=== PATIENT | male | born 1955 | race African-American/Black ===

== ENCOUNTER 2023-02-17 15:22 | Inpatient (IN) | payer OTHER ==
[2023-02-17] VITALS (11 sets, daily range): BP systolic 97–115; BP diastolic 65–85
[~2023-02-17] VITALS: Ht 185.4 cm; Wt 132.1 kg
[2023-02-17] MEDS ORDERED: LORAZEPAM 2MG/ML CPJ IV ONE (15:45)
[2023-02-17] MEDS ORDERED: LEVETIRACETAM 1000MG PREMIX 100 ML IV ONE (16:00)
[2023-02-17 16:27] LABS: PROTHROMBIN TIME 10.6 sec (9.6-11.0)
[2023-02-17 16:29] LABS: CHLORIDE 103 mEq/L (98-107)
[2023-02-17] MEDS ORDERED: NICARDIPINE 50 MG in SODIUM CHLORIDE 0.9% 230 ML IV PRN (16:30)
[2023-02-17] MEDS ORDERED: SUCCINYLCHOLINE CHLORIDE 200MG/10ML IV ONE ×2 (16:33→18:00)
[2023-02-17] MEDS ORDERED: ETOMIDATE 2MG/ML 10ML VIAL IV ONE ×2 (16:33→18:00)
[2023-02-17 16:39] LABS: ETHANOL BLOOD < 10 mg/dL
[2023-02-17] MEDS ORDERED: KCL 20MEQ/100ML PREMIX 100 ML IV ONE (16:45)
[2023-02-17 16:58] LABS: HEMATOCRIT. 44.3 % (42.0-52.0); HEMOGLOBIN. 13.9 g/dL (14.0-18.0); MEAN CORPUSCULAR HEMOGLOBIN 28.8 pg (28.0-32.0); MEAN CORPUSCULAR VOLUME 91.4 fL (80.0-94.0); MEAN PLATELET VOLUME 8.7 fl (7.4-10.4); PLATELET 155 x1000/uL (130-400); RED BLOOD CELL COUNT 4.84 mill/uL (4.7-6.1); RED CELL DISTRIBUTION WIDTH 15.1 % (11.6-14.6)
[2023-02-17] MEDS ORDERED: NICARDIPINE 40MG/200ML PREMIX 200 ML IV PRN (17:30)
[2023-02-17] MEDS ORDERED: NICARDIPINE 40MG/200ML PREMIX 200 ML IV ONE (17:30)
[2023-02-17] MEDS ORDERED: MORPHINE SULFATE 2 MG/ML CPJ (NOT FOR IM USE) IV ONE (17:30)
[2023-02-17] MEDS ORDERED: MIDAZOLAM HCL 100 MG in SODIUM CHLORIDE 0.9% 100 ML IV PRN (18:15)
[2023-02-17] MEDS ORDERED: LACTULOSE 20G/30ML UDC NG ONE (18:15)
[2023-02-17] MEDS ORDERED: FENTANYL CITRATE 2,500 MCG in SODIUM CHLORIDE 0.9% 200 ML IV PRN (18:15)
[2023-02-17 20:27] LABS: PLATELET ESTIMATE NORMAL
[2023-02-17 20:51] LABS: CLARITY URINE CLEAR (CLEAR); COLOR URINE YELLOW (YELLOW); KETONES URINE NEGATIVE (NEGATIVE); LEUKOCYTE ESTERASE URINE NEGATIVE (NEGATIVE); NITRITE URINE NEGATIVE (NEGATIVE); OCCULT BLOOD URINE 2+ (NEGATIVE); PROTEIN URINE 3+ (NEGATIVE); SPECIFIC GRAVITY URINE 1.061 (1.005-1.030); UROBILINOGEN URINE 0.2 E.U./dL (0.2-1.0)
[2023-02-17 21:03] LABS: *AMPHETAMINES SCREEN URINE NEGATIVE (NEGATIVE); *BARBITURATES SCREEN URINE NEGATIVE (NEGATIVE); *BENZODIAZEPINES SCREEN URINE PRESUMTIVE POSITIVE (NEGATIVE); *COCAINE SCREEN URINE NEGATIVE (NEGATIVE); CANNABINOID URINE SCREEN NEGATIVE (NEGATIVE); METHADONE URINE SCREEN NEGATIVE (NEGATIVE); OPIATES URINE SCREEN NEGATIVE (NEGATIVE); PHENCYCLIDINE URINE SCREEN NEGATIVE (NEGATIVE)
[2023-02-17] MEDS ORDERED: LACTULOSE 20G/30ML UDC PO NR (22:30)
[2023-02-17] MEDS ORDERED: DEXTROSE 50% WATER 50ML SYRINGE IV PRN (22:30)
[2023-02-17] MEDS: LEVETIRACETAM 500MG PREMIX 100 ML IV SCH (22:41)
[2023-02-17] MEDS: DEXT 5%/LACTATED RINGERS 1,000 ML IV SCH (22:42)
[2023-02-17 22:51] LABS: BG BASE EXCESS -0.7 mmol/L (-2.0-2.0); BG CARBOXYHEMOGLOBIN 0.6 % (0.5-1.5); BG DEOXYHEMOGLOBIN 1.3 % (0.0-5.0); BG FRACTION INSPIRED OXYGEN 100; BG HCO3 ACT 25.3 mmol/L (22.0-26.0); BG METHEMOGLOBIN 0.1 % (0.0-1.5); BG OXYGEN SATURATION 98.7 % (92.0-98.5); BG PCO2 46.6 mmHg (35.0-45.0); BG PEEP (cmH2O) 0 cmH2O; BG PH 7.352 (7.350-7.450); BG PO2 155.2 mmHg (75.0-100.0); BG SAMPLE SITE RIGHT RADIAL; BG TOTAL HEMOGLOBIN 13.8 g/dL (12.0-18.0); BG VENT MODE VENT - AC
[2023-02-17] MEDS ORDERED: IOHEXOL-350 100 ML BOTTLE ONE (22:56)
[2023-02-17] MEDS ORDERED: FENTANYL 2500MCG/250ML PMX 250 ML IV PRN (23:15)
[2023-02-17] MEDS: PROPOFOL 10MG/ML 100ML 100 ML IV PRN (23:26)
[2023-02-17] MEDS: FENTANYL CITRATE 2,500 MCG in SODIUM CHLORIDE 0.9% 200 ML IV PRN (23:36)
[2023-02-18] VITALS (75 sets, daily range): BP systolic 72–153; BP diastolic 22–105
[2023-02-18 05:21] LABS: BASOPHILS % 0.3 % (0.0-2.0); EOSINOPHILS % 0.8 % (0.0-5.0); HEMATOCRIT. 38.4 % (42.0-52.0); HEMOGLOBIN. 12.5 g/dL (14.0-18.0); LYMPHOCYTES % 32.7 % (20.0-50.0); MEAN CORPUSCULAR HEMOGLOBIN 28.7 pg (28.0-32.0); MEAN CORPUSCULAR VOLUME 88.2 fL (80.0-94.0); MEAN PLATELET VOLUME 8.5 fl (7.4-10.4); MONOCYTES % 11.7 % (2.0-8.0); NEUTROPHILS % 54.5 % (40.0-76.0); PLATELET 126 x1000/uL (130-400); RED BLOOD CELL COUNT 4.36 mill/uL (4.7-6.1); RED CELL DISTRIBUTION WIDTH 15.2 % (11.6-14.6)
[2023-02-18 05:32] LABS: CHLORIDE 106 mEq/L (98-107)
[2023-02-18] MEDS: BLOOD SUGAR DIAGNOSTIC STRIP TEST SCH ×4 (05:46→21:44)
[2023-02-18] MEDS: PROPOFOL 10MG/ML 100ML 100 ML IV PRN ×4 (08:15→23:25)
[2023-02-18] MEDS: NICARDIPINE 100 MG in SODIUM CHLORIDE 0.9% 60 ML IV PRN ×2 (08:39→17:34)
[2023-02-18] MEDS ORDERED: LIDOCAINE HCL 1% 30ML VIAL (10MG/ML) ONE (09:29)
[2023-02-18 10:16] LABS: BG CARBOXYHEMOGLOBIN 0.8 % (0.5-1.5); BG DEOXYHEMOGLOBIN 4.8 % (0.0-5.0); BG FRACTION INSPIRED OXYGEN 85; BG HCO3 ACT 27.4 mmol/L (22.0-26.0); BG METHEMOGLOBIN 0.3 % (0.0-1.5); BG OXYGEN SATURATION 95.1 % (92.0-98.5); BG OXYHEMOGLOBIN 94.1 % (94.0-97.0); BG PCO2 51.2 mmHg (35.0-45.0); BG PH 7.347 (7.350-7.450); BG PO2 77.3 mmHg (75.0-100.0); BG SAMPLE SITE RIGHT RADIAL; BG TOTAL HEMOGLOBIN 13.3 g/dL (12.0-18.0); BG VENT MODE VENT - AC
[2023-02-18] MEDS: LEVETIRACETAM 500MG PREMIX 100 ML IV SCH ×2 (11:15→22:42)
[2023-02-18] MEDS: INSULIN LISPRO 100 UNITS/ML SUBCUT SCH ×3 (12:00→21:00)
[2023-02-18] MEDS: IPRATROPIUM/ALBUTEROL 0.5-3(2.5)MG/3ML NEB HHN SCH ×3 (12:36→20:20)
[2023-02-18] MEDS: IPRATROPIUM/ALBUTEROL 0.5-3(2.5)MG/3ML NEB HHN PRN (12:37)
[2023-02-18] MEDS ORDERED: NALOXONE HCL 0.4MG/ML VIAL IV PRN (13:15)
[2023-02-18] MEDS: MORPHINE SULFATE 4 MG/ML CPJ (NOT FOR IM USE) IV PRN ×3 (13:21→22:20)
[2023-02-18] MEDS: DEXT 5%/LACTATED RINGERS 1,000 ML IV SCH (13:30)
[2023-02-18] MEDS ORDERED: VANCOMYCIN 1500MG in DEXTROSE 5% WATER 250ML IV SCH (14:00)
[2023-02-18] MEDS: PIPERACILLIN/TAZOBACTAM 3.375 G in DEXTROSE 5% WATER 50 ML IV SCH ×2 (14:51→21:45)
[2023-02-18] MEDS: LACTULOSE 20G/30ML UDC PO SCH (21:45)
[2023-02-19] VITALS (102 sets, daily range): BP systolic 103–165; BP diastolic 64–98
[2023-02-19] MEDS: NICARDIPINE 100 MG in SODIUM CHLORIDE 0.9% 60 ML IV PRN ×3 (00:42→18:01)
[2023-02-19] MEDS: MORPHINE SULFATE 4 MG/ML CPJ (NOT FOR IM USE) IV PRN ×2 (01:37→20:08)
[2023-02-19] MEDS: IPRATROPIUM/ALBUTEROL 0.5-3(2.5)MG/3ML NEB HHN SCH ×4 (02:16→20:47)
[2023-02-19] MEDS: VANCOMYCIN 1G PREMIX 200 ML IV SCH ×2 (02:37→15:55)
[2023-02-19] MEDS: PROPOFOL 10MG/ML 100ML 100 ML IV PRN ×5 (03:58→20:07)
[2023-02-19] MEDS: FENTANYL CITRATE 2,500 MCG in SODIUM CHLORIDE 0.9% 200 ML IV PRN (05:04)
[2023-02-19] MEDS: BLOOD SUGAR DIAGNOSTIC STRIP TEST SCH ×4 (05:39→20:32)
[2023-02-19 05:41] LABS: CHLORIDE 98 mEq/L (98-107)
[2023-02-19] MEDS: LACTULOSE 20G/30ML UDC PO SCH (05:47)
[2023-02-19] MEDS: PIPERACILLIN/TAZOBACTAM 3.375 G in DEXTROSE 5% WATER 50 ML IV SCH ×3 (05:47→21:55)
[2023-02-19] MEDS: INSULIN LISPRO 100 UNITS/ML SUBCUT SCH ×4 (06:57→20:32)
[2023-02-19] MEDS: PANTOPRAZOLE SODIUM 40 MG/VIAL IV SCH (09:39)
[2023-02-19] MEDS: LEVETIRACETAM 500MG PREMIX 100 ML IV SCH ×2 (09:39→20:31)
[2023-02-19] MEDS: DEXT 5%/LACTATED RINGERS 1,000 ML IV SCH (09:39)
[2023-02-19 09:59] LABS: BASOPHILS % 0.2 % (0.0-2.0); EOSINOPHILS % 0.1 % (0.0-5.0); HEMATOCRIT. 37.9 % (42.0-52.0); HEMOGLOBIN. 12.4 g/dL (14.0-18.0); LYMPHOCYTES % 13.8 % (20.0-50.0); MEAN CORPUSCULAR HEMOGLOBIN 28.4 pg (28.0-32.0); MEAN CORPUSCULAR VOLUME 87.1 fL (80.0-94.0); MEAN PLATELET VOLUME 8.8 fl (7.4-10.4); MONOCYTES % 14.1 % (2.0-8.0); NEUTROPHILS % 71.8 % (40.0-76.0); PLATELET 108 x1000/uL (130-400); RED BLOOD CELL COUNT 4.36 mill/uL (4.7-6.1); RED CELL DISTRIBUTION WIDTH 14.8 % (11.6-14.6)
[2023-02-19] MEDS ORDERED: METOPROLOL TARTRATE 5MG/5ML VIAL IV NR (12:15)
[2023-02-19 13:04] LABS: BG BASE EXCESS 0.5 mmol/L (-2.0-2.0); BG CARBOXYHEMOGLOBIN 0.4 % (0.5-1.5); BG DEOXYHEMOGLOBIN 15.2 % (0.0-5.0); BG FRACTION INSPIRED OXYGEN 50; BG HCO3 ACT 25.4 mmol/L (22.0-26.0); BG METHEMOGLOBIN 0.1 % (0.0-1.5); BG OXYGEN SATURATION 84.7 % (92.0-98.5); BG OXYHEMOGLOBIN 84.3 % (94.0-97.0); BG PCO2 41.8 mmHg (35.0-45.0); BG PH 7.401 (7.350-7.450); BG PO2 47.9 mmHg (75.0-100.0); BG SAMPLE SITE RIGHT RADIAL; BG TOTAL HEMOGLOBIN 13.4 g/dL (12.0-18.0); BG VENT MODE VENT - AC
[2023-02-20] VITALS (96 sets, daily range): BP systolic 110–185; BP diastolic 64–109
[2023-02-20] MEDS: MORPHINE SULFATE 4 MG/ML CPJ (NOT FOR IM USE) IV PRN (00:20)
[2023-02-20] MEDS: PROPOFOL 10MG/ML 100ML 100 ML IV PRN ×5 (00:34→22:54)
[2023-02-20] MEDS: NICARDIPINE 100 MG in SODIUM CHLORIDE 0.9% 60 ML IV PRN ×3 (01:19→17:43)
[2023-02-20] MEDS: VANCOMYCIN 1G PREMIX 200 ML IV SCH (02:23)
[2023-02-20] MEDS: IPRATROPIUM/ALBUTEROL 0.5-3(2.5)MG/3ML NEB HHN SCH ×5 (02:34→22:00)
[2023-02-20] MEDS: PIPERACILLIN/TAZOBACTAM 3.375 G in DEXTROSE 5% WATER 50 ML IV SCH ×3 (06:08→22:47)
[2023-02-20] MEDS: INSULIN LISPRO 100 UNITS/ML SUBCUT SCH ×4 (06:09→21:46)
[2023-02-20] MEDS: BLOOD SUGAR DIAGNOSTIC STRIP TEST SCH ×4 (06:09→21:46)
[2023-02-20] MEDS: LEVETIRACETAM 500MG PREMIX 100 ML IV SCH ×2 (08:50→21:26)
[2023-02-20] MEDS: LACTULOSE 20G/30ML UDC PO SCH (08:51)
[2023-02-20] MEDS: PANTOPRAZOLE SODIUM 40 MG/VIAL IV SCH (08:51)
[2023-02-20 08:59] LABS: BG BASE EXCESS 0.9 mmol/L (-2.0-2.0); BG DEOXYHEMOGLOBIN 12.8 % (0.0-5.0); BG FRACTION INSPIRED OXYGEN 60; BG HCO3 ACT 26.2 mmol/L (22.0-26.0); BG METHEMOGLOBIN 0.3 % (0.0-1.5); BG OXYGEN SATURATION 87.2 % (92.0-98.5); BG OXYHEMOGLOBIN 86.9 % (94.0-97.0); BG PCO2 44.4 mmHg (35.0-45.0); BG PH 7.389 (7.350-7.450); BG SAMPLE SITE RIGHT RADIAL; BG TOTAL HEMOGLOBIN 12.6 g/dL (12.0-18.0); BG TOTAL RESPIRATORY RATE 16 b/min; BG VENT MODE VENT - AC
[2023-02-20] MEDS: ACETYLCYSTEINE 200MG/ML 20% VIAL 4ML INH SCH (14:27)
[2023-02-20 18:13] LABS: CREATINE KINASE 396 IU/L (39-308)
[2023-02-20] MEDS: FENTANYL CITRATE 2,500 MCG in SODIUM CHLORIDE 0.9% 200 ML IV PRN (21:08)
[2023-02-20] MEDS: ACETAMINOPHEN 650MG/20.3ML UDC PO PRN (21:26)
[2023-02-21] VITALS (84 sets, daily range): BP systolic 101–153; BP diastolic 60–87
[2023-02-21] MEDS: NICARDIPINE 100 MG in SODIUM CHLORIDE 0.9% 60 ML IV PRN ×3 (01:02→20:29)
[2023-02-21] MEDS: PROPOFOL 10MG/ML 100ML 100 ML IV PRN ×9 (01:06→23:28)
[2023-02-21] MEDS: ACETYLCYSTEINE 200MG/ML 20% VIAL 4ML INH SCH ×4 (01:52→20:51)
[2023-02-21] MEDS: IPRATROPIUM/ALBUTEROL 0.5-3(2.5)MG/3ML NEB HHN SCH ×5 (04:45→20:50)
[2023-02-21 05:28] LABS: HEMATOCRIT. 35.3 % (42.0-52.0); HEMOGLOBIN. 11.1 g/dL (14.0-18.0); MEAN CORPUSCULAR HEMOGLOBIN 27.9 pg (28.0-32.0); MEAN CORPUSCULAR VOLUME 88.3 fL (80.0-94.0); MEAN PLATELET VOLUME 8.1 fl (7.4-10.4); PLATELET 86 x1000/uL (130-400); RED BLOOD CELL COUNT 3.99 mill/uL (4.7-6.1); RED CELL DISTRIBUTION WIDTH 15.5 % (11.6-14.6)
[2023-02-21 05:49] LABS: CHLORIDE 101 mEq/L (98-107)
[2023-02-21] MEDS: DEXT 5%/LACTATED RINGERS 1,000 ML IV SCH (06:15)
[2023-02-21] MEDS: PIPERACILLIN/TAZOBACTAM 3.375 G in DEXTROSE 5% WATER 50 ML IV SCH ×3 (06:16→22:13)
[2023-02-21] MEDS: BLOOD SUGAR DIAGNOSTIC STRIP TEST SCH ×4 (06:31→21:25)
[2023-02-21] MEDS: INSULIN LISPRO 100 UNITS/ML SUBCUT SCH ×4 (07:00→21:25)
[2023-02-21 08:09] LABS: BG BASE EXCESS 1.2 mmol/L (-2.0-2.0); BG CARBOXYHEMOGLOBIN 0.3 % (0.5-1.5); BG DEOXYHEMOGLOBIN 6.9 % (0.0-5.0); BG HCO3 ACT 27.1 mmol/L (22.0-26.0); BG METHEMOGLOBIN 0.3 % (0.0-1.5); BG OXYGEN SATURATION 93.1 % (92.0-98.5); BG OXYHEMOGLOBIN 92.5 % (94.0-97.0); BG PCO2 48.2 mmHg (35.0-45.0); BG PH 7.368 (7.350-7.450); BG PO2 78.1 mmHg (75.0-100.0); BG SAMPLE SITE RIGHT RADIAL; BG TOTAL HEMOGLOBIN 12.3 g/dL (12.0-18.0); BG VENT MODE VENT - AC
[2023-02-21] MEDS: LEVETIRACETAM 500MG PREMIX 100 ML IV SCH ×2 (09:01→21:05)
[2023-02-21] MEDS: LACTULOSE 20G/30ML UDC PO SCH (09:01)
[2023-02-21] MEDS: PANTOPRAZOLE SODIUM 40 MG/VIAL IV SCH (09:02)
[2023-02-21 11:18] LABS: NUCLEATED RED BLOOD CELLS 1 /100 WBC
[2023-02-21 11:19] LABS: PLATELET ESTIMATE DECREASED
[2023-02-21] MEDS: FENTANYL CITRATE 2,500 MCG in SODIUM CHLORIDE 0.9% 200 ML IV PRN (22:55)
[2023-02-22] VITALS (85 sets, daily range): BP systolic 100–164; BP diastolic 61–93
[2023-02-22] MEDS: IPRATROPIUM/ALBUTEROL 0.5-3(2.5)MG/3ML NEB HHN SCH ×2 (00:29→04:58)
[2023-02-22] MEDS: PROPOFOL 10MG/ML 100ML 100 ML IV PRN ×8 (02:06→23:24)
[2023-02-22] MEDS: DEXT 5%/LACTATED RINGERS 1,000 ML IV SCH ×2 (03:23→17:46)
[2023-02-22] MEDS: NICARDIPINE 100 MG in SODIUM CHLORIDE 0.9% 60 ML IV PRN (03:57)
[2023-02-22 04:37] LABS: HEMATOCRIT. 32.1 % (42.0-52.0); HEMOGLOBIN. 10.5 g/dL (14.0-18.0); MEAN CORPUSCULAR HEMOGLOBIN 28.6 pg (28.0-32.0); MEAN CORPUSCULAR VOLUME 87.5 fL (80.0-94.0); MEAN PLATELET VOLUME 8.5 fl (7.4-10.4); PLATELET 87 x1000/uL (130-400); RED BLOOD CELL COUNT 3.67 mill/uL (4.7-6.1); RED CELL DISTRIBUTION WIDTH 15.4 % (11.6-14.6)
[2023-02-22 05:25] LABS: PLATELET ESTIMATE DECREASED
[2023-02-22] MEDS: BLOOD SUGAR DIAGNOSTIC STRIP TEST SCH ×2 (06:09→11:30)
[2023-02-22] MEDS: INSULIN LISPRO 100 UNITS/ML SUBCUT SCH ×2 (06:14→12:00)
[2023-02-22] MEDS: PIPERACILLIN/TAZOBACTAM 3.375 G in DEXTROSE 5% WATER 50 ML IV SCH ×3 (06:23→21:26)
[2023-02-22] MEDS ORDERED: HYDRALAZINE 20MG/ML VIAL IV PRN (06:45)
[2023-02-22 08:27] LABS: BG BASE EXCESS 5.3 mmol/L (-2.0-2.0); BG CARBOXYHEMOGLOBIN 0.2 % (0.5-1.5); BG DEOXYHEMOGLOBIN 14.5 % (0.0-5.0); BG FRACTION INSPIRED OXYGEN 60; BG HCO3 ACT 31.2 mmol/L (22.0-26.0); BG METHEMOGLOBIN 0.2 % (0.0-1.5); BG OXYGEN SATURATION 85.4 % (92.0-98.5); BG OXYHEMOGLOBIN 85.1 % (94.0-97.0); BG PCO2 52.1 mmHg (35.0-45.0); BG PH 7.395 (7.350-7.450); BG PO2 55.4 mmHg (75.0-100.0); BG SAMPLE SITE LEFT RADIAL; BG TOTAL HEMOGLOBIN 11.2 g/dL (12.0-18.0); BG TOTAL RESPIRATORY RATE 23 b/min; BG VENT MODE VENT - AC
[2023-02-22] MEDS: IPRATROPIUM/ALBUTEROL 0.5-3(2.5)MG/3ML NEB HHN PRN (08:57)
[2023-02-22] MEDS: ACETYLCYSTEINE 200MG/ML 20% VIAL 4ML INH SCH ×2 (08:58→16:43)
[2023-02-22] MEDS ORDERED: LORAZEPAM 2MG/ML CPJ ONE (09:15)
[2023-02-22] MEDS ORDERED: MIDAZOLAM 100MG/100ML PMX 100 ML IV PRN (09:30)
[2023-02-22] MEDS: LACTULOSE 20G/30ML UDC PO SCH (09:31)
[2023-02-22] MEDS: LEVETIRACETAM 500MG PREMIX 100 ML IV SCH ×2 (09:32→21:26)
[2023-02-22] MEDS: PANTOPRAZOLE SODIUM 40 MG/VIAL IV SCH (09:32)
[2023-02-22 10:19] LABS: BG BASE EXCESS 0.1 mmol/L (-2.0-2.0); BG CARBOXYHEMOGLOBIN 0.3 % (0.5-1.5); BG FRACTION INSPIRED OXYGEN 70; BG HCO3 ACT 24.7 mmol/L (22.0-26.0); BG METHEMOGLOBIN 0.5 % (0.0-1.5); BG OXYGEN SATURATION 87.9 % (92.0-98.5); BG OXYHEMOGLOBIN 87.2 % (94.0-97.0); BG PCO2 39.7 mmHg (35.0-45.0); BG PH 7.411 (7.350-7.450); BG SAMPLE SITE LEFT RADIAL; BG TOTAL HEMOGLOBIN 11.1 g/dL (12.0-18.0); BG TOTAL RESPIRATORY RATE 22 b/min; BG VENT MODE PRVC
[2023-02-22] MEDS ORDERED: METOPROLOL TARTRATE 50MG TABLET PO NR (11:45)
[2023-02-22] MEDS: IPRATROPIUM BROMIDE (0.02%) 0.5MG/2.5ML NEB HHN SCH ×3 (12:34→20:43)
[2023-02-22] MEDS: AMLODIPINE 10MG TABLET PO SCH (14:16)
[2023-02-22] MEDS: FENTANYL CITRATE 2,500 MCG in SODIUM CHLORIDE 0.9% 200 ML IV PRN (20:16)
[2023-02-22] MEDS: METOPROLOL TARTRATE 50MG TABLET PO SCH (21:26)
[2023-02-22] MEDS: QUETIAPINE FUMARATE 25MG TABLET PO SCH (21:26)
[2023-02-23] VITALS (86 sets, daily range): BP systolic 113–156; BP diastolic 71–99
[2023-02-23] MEDS: ACETYLCYSTEINE 200MG/ML 20% VIAL 4ML INH SCH ×3 (00:24→16:40)
[2023-02-23] MEDS: IPRATROPIUM BROMIDE (0.02%) 0.5MG/2.5ML NEB HHN SCH ×6 (00:24→20:57)
[2023-02-23] MEDS: PROPOFOL 10MG/ML 100ML 100 ML IV PRN ×3 (02:44→07:21)
[2023-02-23 05:58] LABS: HEMATOCRIT. 33.4 % (42.0-52.0); HEMOGLOBIN. 11.1 g/dL (14.0-18.0); MEAN CORPUSCULAR HEMOGLOBIN 29.2 pg (28.0-32.0); MEAN CORPUSCULAR VOLUME 87.8 fL (80.0-94.0); MEAN PLATELET VOLUME 8.1 fl (7.4-10.4); PLATELET 83 x1000/uL (130-400); RED BLOOD CELL COUNT 3.81 mill/uL (4.7-6.1); RED CELL DISTRIBUTION WIDTH 15.5 % (11.6-14.6)
[2023-02-23] MEDS: BLOOD SUGAR DIAGNOSTIC STRIP TEST SCH ×4 (06:00→18:00)
[2023-02-23] MEDS: INSULIN LISPRO 100 UNITS/ML SUBCUT SCH ×4 (06:00→18:00)
[2023-02-23 06:03] LABS: CHLORIDE 109 mEq/L (98-107)
[2023-02-23] MEDS ORDERED: FENTANYL CITRATE/PF 2,500 MCG in SODIUM CHLORIDE 0.9% 200 ML IV PRN (07:00)
[2023-02-23] MEDS: PIPERACILLIN/TAZOBACTAM 3.375 G in DEXTROSE 5% WATER 50 ML IV SCH (07:20)
[2023-02-23 07:45] LABS: BG BASE EXCESS 2.6 mmol/L (-2.0-2.0); BG CARBOXYHEMOGLOBIN 0.3 % (0.5-1.5); BG DEOXYHEMOGLOBIN 2.2 % (0.0-5.0); BG HCO3 ACT 26.5 mmol/L (22.0-26.0); BG METHEMOGLOBIN 0.3 % (0.0-1.5); BG OXYGEN SATURATION 97.8 % (92.0-98.5); BG OXYHEMOGLOBIN 97.2 % (94.0-97.0); BG PCO2 38.4 mmHg (35.0-45.0); BG PH 7.457 (7.350-7.450); BG PO2 110.7 mmHg (75.0-100.0); BG SAMPLE SITE RIGHT RADIAL; BG TOTAL HEMOGLOBIN 12.1 g/dL (12.0-18.0); BG VENT MODE VENT- PRVC
[2023-02-23] MEDS: PANTOPRAZOLE SODIUM 40 MG/VIAL IV SCH (08:00)
[2023-02-23] MEDS: LACTULOSE 20G/30ML UDC PO SCH (08:00)
[2023-02-23] MEDS: METOPROLOL TARTRATE 50MG TABLET PO SCH ×2 (08:00→20:59)
[2023-02-23] MEDS: QUETIAPINE FUMARATE 25MG TABLET PO SCH ×2 (08:01→20:58)
[2023-02-23] MEDS: LEVETIRACETAM 500MG PREMIX 100 ML IV SCH ×2 (08:01→20:59)
[2023-02-23] MEDS: AMLODIPINE 10MG TABLET PO SCH (08:01)
[2023-02-23] MEDS ORDERED: PROPOFOL 10MG/ML 100ML 100 ML IV PRN ×2 (09:45→10:45)
[2023-02-23] MEDS: MIDAZOLAM HCL 100 MG in SODIUM CHLORIDE 0.9% 100 ML IV PRN ×2 (12:02→18:52)
[2023-02-23] MEDS: NICARDIPINE 100 MG in SODIUM CHLORIDE 0.9% 60 ML IV PRN ×2 (13:01→22:14)
[2023-02-23 14:07] LABS: ATYPICAL LYMPHOCYTES 1; PLATELET ESTIMATE DECREASED
[2023-02-23] MEDS ORDERED: ONDANSETRON HCL 4MG/2ML INJ IV PRN (18:30)
[2023-02-24] VITALS (95 sets, daily range): BP systolic 105–133; BP diastolic 70–90
[2023-02-24] MEDS: IPRATROPIUM BROMIDE (0.02%) 0.5MG/2.5ML NEB HHN SCH ×6 (00:16→20:56)
[2023-02-24] MEDS: ACETYLCYSTEINE 200MG/ML 20% VIAL 4ML INH SCH ×3 (00:17→15:46)
[2023-02-24 05:51] LABS: HEMATOCRIT. 36.1 % (42.0-52.0); HEMOGLOBIN. 11.8 g/dL (14.0-18.0); MEAN CORPUSCULAR HEMOGLOBIN 28.9 pg (28.0-32.0); MEAN CORPUSCULAR VOLUME 88.3 fL (80.0-94.0); RED BLOOD CELL COUNT 4.09 mill/uL (4.7-6.1); RED CELL DISTRIBUTION WIDTH 15.8 % (11.6-14.6)
[2023-02-24 05:52] LABS: CHLORIDE 113 mEq/L (98-107)
[2023-02-24] MEDS: INSULIN LISPRO 100 UNITS/ML SUBCUT SCH ×4 (06:00→17:50)
[2023-02-24] MEDS: BLOOD SUGAR DIAGNOSTIC STRIP TEST SCH ×4 (06:03→17:50)
[2023-02-24] MEDS: PANTOPRAZOLE SODIUM 40 MG/VIAL IV SCH (08:26)
[2023-02-24] MEDS: LACTULOSE 20G/30ML UDC PO SCH (08:26)
[2023-02-24] MEDS: LEVETIRACETAM 500MG PREMIX 100 ML IV SCH ×2 (08:26→21:35)
[2023-02-24] MEDS: METOPROLOL TARTRATE 50MG TABLET PO SCH ×2 (08:27→21:35)
[2023-02-24] MEDS: QUETIAPINE FUMARATE 25MG TABLET PO SCH ×2 (08:27→21:34)
[2023-02-24] MEDS: AMLODIPINE 10MG TABLET PO SCH (08:27)
[2023-02-24 08:46] LABS: BG BASE EXCESS 3.3 mmol/L (-2.0-2.0); BG CARBOXYHEMOGLOBIN 0.1 % (0.5-1.5); BG DEOXYHEMOGLOBIN 2.4 % (0.0-5.0); BG FRACTION INSPIRED OXYGEN 50; BG HCO3 ACT 26.7 mmol/L (22.0-26.0); BG METHEMOGLOBIN 0.1 % (0.0-1.5); BG OXYGEN SATURATION 97.6 % (92.0-98.5); BG OXYHEMOGLOBIN 97.4 % (94.0-97.0); BG PCO2 36.2 mmHg (35.0-45.0); BG PH 7.485 (7.350-7.450); BG PO2 103.5 mmHg (75.0-100.0); BG SAMPLE SITE RIGHT RADIAL; BG TOTAL HEMOGLOBIN 12.5 g/dL (12.0-18.0); BG VENT MODE AC/ PRVC
[2023-02-24 09:26] LABS: MEAN PLATELET VOLUME 8.6 fl (7.4-10.4); PLATELET 81 x1000/uL (130-400); PLATELET ESTIMATE DECREASED
[2023-02-24] MEDS: DEXT 5%/0.45% NACL 1000ML 1,000 ML IV SCH (11:28)
[2023-02-24] MEDS: ACETAMINOPHEN 650MG/20.3ML UDC PO PRN (11:39)
[2023-02-24] MEDS: MIDAZOLAM HCL 100 MG in SODIUM CHLORIDE 0.9% 100 ML IV PRN (16:45)
[2023-02-24] MEDS: FENTANYL 2500MCG/250ML PMX 250 ML IV PRN (16:46)
[2023-02-25] VITALS (96 sets, daily range): BP systolic 105–154; BP diastolic 50–111
[2023-02-25] MEDS: BLOOD SUGAR DIAGNOSTIC STRIP TEST SCH ×5 (00:21→23:16)
[2023-02-25] MEDS: ACETYLCYSTEINE 200MG/ML 20% VIAL 4ML INH SCH ×3 (00:34→17:04)
[2023-02-25] MEDS: IPRATROPIUM BROMIDE (0.02%) 0.5MG/2.5ML NEB HHN SCH ×6 (00:35→20:23)
[2023-02-25] MEDS: DEXT 5%/0.45% NACL 1000ML 1,000 ML IV SCH ×2 (00:53→13:14)
[2023-02-25] MEDS: ACETAMINOPHEN 650MG/20.3ML UDC PO PRN ×4 (03:36→22:28)
[2023-02-25] MEDS: INSULIN LISPRO 100 UNITS/ML SUBCUT SCH ×5 (06:00→23:16)
[2023-02-25 08:01] LABS: BG BASE EXCESS 5.8 mmol/L (-2.0-2.0); BG CARBOXYHEMOGLOBIN 0.2 % (0.5-1.5); BG DEOXYHEMOGLOBIN 10.3 % (0.0-5.0); BG HCO3 ACT 28.6 mmol/L (22.0-26.0); BG OXYGEN SATURATION 89.7 % (92.0-98.5); BG OXYHEMOGLOBIN 89.5 % (94.0-97.0); BG PCO2 35.4 mmHg (35.0-45.0); BG PH 7.525 (7.350-7.450); BG PO2 54.6 mmHg (75.0-100.0); BG SAMPLE SITE RIGHT RADIAL; BG TOTAL HEMOGLOBIN 13.1 g/dL (12.0-18.0); BG VENT MODE VENT- PRVC
[2023-02-25] MEDS: LACTULOSE 20G/30ML UDC PO SCH (08:10)
[2023-02-25] MEDS: AMLODIPINE 10MG TABLET PO SCH (08:10)
[2023-02-25] MEDS: METOPROLOL TARTRATE 50MG TABLET PO SCH ×2 (08:10→20:17)
[2023-02-25] MEDS: PANTOPRAZOLE SODIUM 40 MG/VIAL IV SCH (08:10)
[2023-02-25] MEDS: QUETIAPINE FUMARATE 25MG TABLET PO SCH ×2 (08:10→20:17)
[2023-02-25] MEDS: LEVETIRACETAM 500MG PREMIX 100 ML IV SCH ×2 (08:11→20:17)
[2023-02-25 15:06] LABS: BASOPHILS % 0.3 % (0.0-2.0); EOSINOPHILS % 0.2 % (0.0-5.0); HEMATOCRIT. 37.8 % (42.0-52.0); HEMOGLOBIN. 12.3 g/dL (14.0-18.0); LYMPHOCYTES % 18.7 % (20.0-50.0); MEAN CORPUSCULAR HEMOGLOBIN 28.6 pg (28.0-32.0); MEAN CORPUSCULAR VOLUME 88.4 fL (80.0-94.0); MONOCYTES % 12.7 % (2.0-8.0); NEUTROPHILS % 68.1 % (40.0-76.0); PLATELET 82 x1000/uL (130-400); RED BLOOD CELL COUNT 4.28 mill/uL (4.7-6.1); RED CELL DISTRIBUTION WIDTH 15.6 % (11.6-14.6)
[2023-02-25] MEDS ORDERED: POTASSIUM CHLORIDE 20MEQ/PACKET PO NR (16:15)
[2023-02-25] MEDS: DEXTROSE 5% WATER 1,000 ML IV SCH (16:26)
[2023-02-26] VITALS (84 sets, daily range): BP systolic 108–159; BP diastolic 51–105
[2023-02-26] MEDS: IPRATROPIUM BROMIDE (0.02%) 0.5MG/2.5ML NEB HHN SCH ×6 (00:24→21:05)
[2023-02-26] MEDS: BLOOD SUGAR DIAGNOSTIC STRIP TEST SCH ×4 (05:35→23:08)
[2023-02-26] MEDS: INSULIN LISPRO 100 UNITS/ML SUBCUT SCH ×4 (05:35→23:08)
[2023-02-26] MEDS: METOPROLOL TARTRATE 50MG TABLET PO SCH ×2 (08:42→20:23)
[2023-02-26] MEDS: LACTULOSE 20G/30ML UDC PO SCH (08:42)
[2023-02-26] MEDS: PANTOPRAZOLE SODIUM 40 MG/VIAL IV SCH (08:43)
[2023-02-26] MEDS: LEVETIRACETAM 500MG PREMIX 100 ML IV SCH ×2 (08:43→21:03)
[2023-02-26] MEDS: QUETIAPINE FUMARATE 25MG TABLET PO SCH ×2 (08:43→20:22)
[2023-02-26] MEDS: AMLODIPINE 10MG TABLET PO SCH (08:43)
[2023-02-26 09:22] LABS: BASOPHILS % 0.5 % (0.0-2.0); EOSINOPHILS % 0.3 % (0.0-5.0); HEMATOCRIT. 37.3 % (42.0-52.0); HEMOGLOBIN. 11.9 g/dL (14.0-18.0); LYMPHOCYTES % 16.4 % (20.0-50.0); MEAN CORPUSCULAR HEMOGLOBIN 28.4 pg (28.0-32.0); MEAN PLATELET VOLUME 10.6 fl (7.4-10.4); MONOCYTES % 9.4 % (2.0-8.0); NEUTROPHILS % 73.4 % (40.0-76.0); PLATELET 80 x1000/uL (130-400); RED BLOOD CELL COUNT 4.19 mill/uL (4.7-6.1); RED CELL DISTRIBUTION WIDTH 15.8 % (11.6-14.6)
[2023-02-26] MEDS: ACETAMINOPHEN 650MG/20.3ML UDC PO PRN ×2 (09:22→18:20)
[2023-02-26 09:32] LABS: CHLORIDE 119 mEq/L (98-107)
[2023-02-26 09:33] LABS: BG CARBOXYHEMOGLOBIN 0.1 % (0.5-1.5); BG DEOXYHEMOGLOBIN 6.8 % (0.0-5.0); BG HCO3 ACT 30.3 mmol/L (22.0-26.0); BG METHEMOGLOBIN 0.3 % (0.0-1.5); BG OXYGEN SATURATION 93.2 % (92.0-98.5); BG OXYHEMOGLOBIN 92.8 % (94.0-97.0); BG PCO2 42.8 mmHg (35.0-45.0); BG PH 7.468 (7.350-7.450); BG PO2 68.4 mmHg (75.0-100.0); BG SAMPLE SITE RIGHT RADIAL; BG TOTAL HEMOGLOBIN 12.8 g/dL (12.0-18.0); BG VENT MODE VENT- PRVC
[2023-02-26] MEDS ORDERED: DILTIAZEM HCL 5MG/ML 5ML VIAL IV NR (11:45)
[2023-02-26] MEDS ORDERED: NON FORMULARY PATIENT HOME MED XX ONE (11:45)
[2023-02-26] MEDS: DEXTROSE 5% WATER 1,000 ML IV SCH (12:18)
[2023-02-26] MEDS ORDERED: CEFEPIME 1,000 MG in DEXTROSE 5% WATER 50 ML IV SCH (13:00)
[2023-02-26] MEDS: CEFEPIME 1GM PREMIX 50 ML IV SCH (13:36)
[2023-02-26] MEDS: GUAIFENESIN 200MG/10ML SUGAR FREE UDC PO SCH (18:19)
[2023-02-27] VITALS (91 sets, daily range): BP systolic 115–156; BP diastolic 57–125
[2023-02-27] MEDS: GUAIFENESIN 200MG/10ML SUGAR FREE UDC PO SCH ×5 (00:09→23:24)
[2023-02-27] MEDS: ACETAMINOPHEN 650MG/20.3ML UDC PO PRN ×4 (00:24→23:40)
[2023-02-27] MEDS: ACETYLCYSTEINE 200MG/ML 20% VIAL 4ML INH SCH ×3 (00:31→16:23)
[2023-02-27] MEDS: IPRATROPIUM BROMIDE (0.02%) 0.5MG/2.5ML NEB HHN SCH ×6 (00:32→20:39)
[2023-02-27] MEDS: CEFEPIME 1GM PREMIX 50 ML IV SCH ×2 (01:02→12:16)
[2023-02-27 04:37] LABS: BASOPHILS % 0.2 % (0.0-2.0); EOSINOPHILS % 0.1 % (0.0-5.0); HEMATOCRIT. 34.7 % (42.0-52.0); HEMOGLOBIN. 10.9 g/dL (14.0-18.0); LYMPHOCYTES % 14.2 % (20.0-50.0); MEAN CORPUSCULAR HEMOGLOBIN 28.2 pg (28.0-32.0); MEAN CORPUSCULAR VOLUME 89.3 fL (80.0-94.0); MEAN PLATELET VOLUME 10.4 fl (7.4-10.4); MONOCYTES % 8.2 % (2.0-8.0); NEUTROPHILS % 77.3 % (40.0-76.0); PLATELET 81 x1000/uL (130-400); RED BLOOD CELL COUNT 3.88 mill/uL (4.7-6.1); RED CELL DISTRIBUTION WIDTH 16.3 % (11.6-14.6)
[2023-02-27 04:55] LABS: CHLORIDE 121 mEq/L (98-107)
[2023-02-27] MEDS: INSULIN LISPRO 100 UNITS/ML SUBCUT SCH ×4 (05:09→23:35)
[2023-02-27] MEDS: BLOOD SUGAR DIAGNOSTIC STRIP TEST SCH ×4 (05:09→23:24)
[2023-02-27] MEDS: DEXTROSE 5% WATER 1,000 ML IV SCH (08:04)
[2023-02-27] MEDS: PANTOPRAZOLE SODIUM 40 MG/VIAL IV SCH (08:05)
[2023-02-27] MEDS: AMLODIPINE 10MG TABLET PO SCH (08:05)
[2023-02-27] MEDS: METOPROLOL TARTRATE 50MG TABLET PO SCH ×2 (08:05→20:22)
[2023-02-27] MEDS: QUETIAPINE FUMARATE 25MG TABLET PO SCH ×2 (08:05→20:21)
[2023-02-27] MEDS: LEVETIRACETAM 500MG PREMIX 100 ML IV SCH ×2 (08:06→20:21)
[2023-02-27] MEDS: LACTULOSE 20G/30ML UDC PO SCH (08:06)
[2023-02-27] MEDS ORDERED: MIDAZOLAM 100MG/100ML PMX 100 ML IV PRN (08:45)
[2023-02-27] MEDS: FENTANYL 2500MCG/250ML PMX 250 ML IV PRN (08:58)
[2023-02-27 10:03] LABS: BG BASE EXCESS 3.9 mmol/L (-2.0-2.0); BG CARBOXYHEMOGLOBIN 0.3 % (0.5-1.5); BG DEOXYHEMOGLOBIN 3.1 % (0.0-5.0); BG FRACTION INSPIRED OXYGEN 70; BG HCO3 ACT 26.6 mmol/L (22.0-26.0); BG METHEMOGLOBIN 0.1 % (0.0-1.5); BG OXYGEN SATURATION 96.9 % (92.0-98.5); BG OXYHEMOGLOBIN 96.5 % (94.0-97.0); BG PCO2 33.6 mmHg (35.0-45.0); BG PH 7.517 (7.350-7.450); BG PO2 93.2 mmHg (75.0-100.0); BG TOTAL HEMOGLOBIN 11.8 g/dL (12.0-18.0); BG VENT MODE PRVC
[2023-02-27] MEDS: MIDAZOLAM HCL 100 MG in SODIUM CHLORIDE 0.9% 100 ML IV PRN (13:46)
[2023-02-28] VITALS (91 sets, daily range): BP systolic 99–143; BP diastolic 42–92
[2023-02-28] MEDS: IPRATROPIUM BROMIDE (0.02%) 0.5MG/2.5ML NEB HHN SCH ×7 (00:23→23:47)
[2023-02-28] MEDS: ACETYLCYSTEINE 200MG/ML 20% VIAL 4ML INH SCH ×2 (00:23→23:47)
[2023-02-28] MEDS: CEFEPIME 1GM PREMIX 50 ML IV SCH ×2 (01:20→12:18)
[2023-02-28] MEDS: DEXTROSE 5% WATER 1,000 ML IV SCH (04:45)
[2023-02-28 05:10] LABS: BASOPHILS % 0.4 % (0.0-2.0); EOSINOPHILS % 0.3 % (0.0-5.0); HEMATOCRIT. 33.4 % (42.0-52.0); HEMOGLOBIN. 10.4 g/dL (14.0-18.0); LYMPHOCYTES % 16.5 % (20.0-50.0); MEAN CORPUSCULAR HEMOGLOBIN 27.7 pg (28.0-32.0); MEAN PLATELET VOLUME 11.4 fl (7.4-10.4); MONOCYTES % 6.3 % (2.0-8.0); NEUTROPHILS % 76.5 % (40.0-76.0); PLATELET 90 x1000/uL (130-400); RED BLOOD CELL COUNT 3.75 mill/uL (4.7-6.1); RED CELL DISTRIBUTION WIDTH 16.6 % (11.6-14.6)
[2023-02-28 05:28] LABS: CHLORIDE 119 mEq/L (98-107)
[2023-02-28] MEDS: INSULIN LISPRO 100 UNITS/ML SUBCUT SCH ×4 (06:00→23:54)
[2023-02-28] MEDS: GUAIFENESIN 200MG/10ML SUGAR FREE UDC PO SCH ×3 (06:30→17:54)
[2023-02-28] MEDS: BLOOD SUGAR DIAGNOSTIC STRIP TEST SCH ×4 (06:30→23:53)
[2023-02-28] MEDS: FENTANYL 2500MCG/250ML PMX 250 ML IV PRN (07:47)
[2023-02-28 07:52] LABS: BG BASE EXCESS 3.4 mmol/L (-2.0-2.0); BG CARBOXYHEMOGLOBIN 0.1 % (0.5-1.5); BG DEOXYHEMOGLOBIN 6.7 % (0.0-5.0); BG HCO3 ACT 28.7 mmol/L (22.0-26.0); BG METHEMOGLOBIN 0.1 % (0.0-1.5); BG OXYGEN SATURATION 93.3 % (92.0-98.5); BG OXYHEMOGLOBIN 93.1 % (94.0-97.0); BG PCO2 46.3 mmHg (35.0-45.0); BG PO2 69.7 mmHg (75.0-100.0); BG SAMPLE SITE RIGHT RADIAL; BG TOTAL HEMOGLOBIN 12.6 g/dL (12.0-18.0); BG VENT MODE VENT- PRVC
[2023-02-28] MEDS: LEVETIRACETAM 500MG PREMIX 100 ML IV SCH ×2 (08:18→21:15)
[2023-02-28] MEDS: PANTOPRAZOLE SODIUM 40 MG/VIAL IV SCH (08:18)
[2023-02-28] MEDS: LACTULOSE 20G/30ML UDC PO SCH (08:18)
[2023-02-28] MEDS: QUETIAPINE FUMARATE 25MG TABLET PO SCH (08:18)
[2023-02-28] MEDS: METOPROLOL TARTRATE 50MG TABLET PO SCH ×2 (08:19→21:16)
[2023-02-28] MEDS: AMLODIPINE 10MG TABLET PO SCH (08:19)
[2023-02-28] MEDS: ACETAMINOPHEN 650MG/20.3ML UDC PO PRN ×2 (12:17→19:34)
[2023-02-28] MEDS: QUETIAPINE FUMARATE 50MG TABLET PO SCH (21:15)
[2023-03-01] VITALS (91 sets, daily range): BP systolic 87–158; BP diastolic 46–86
[2023-03-01] MEDS: GUAIFENESIN 200MG/10ML SUGAR FREE UDC PO SCH ×4 (00:08→17:51)
[2023-03-01] MEDS: DEXTROSE 5% WATER 1,000 ML IV SCH ×2 (00:09→21:24)
[2023-03-01] MEDS: CEFEPIME 1GM PREMIX 50 ML IV SCH ×2 (00:10→12:18)
[2023-03-01] MEDS: ACETAMINOPHEN 650MG/20.3ML UDC PO PRN ×3 (01:10→21:06)
[2023-03-01] MEDS: MIDAZOLAM HCL 100 MG in SODIUM CHLORIDE 0.9% 100 ML IV PRN (02:50)
[2023-03-01] MEDS: IPRATROPIUM BROMIDE (0.02%) 0.5MG/2.5ML NEB HHN SCH ×5 (03:56→20:34)
[2023-03-01] MEDS: BLOOD SUGAR DIAGNOSTIC STRIP TEST SCH ×3 (05:58→17:51)
[2023-03-01] MEDS: INSULIN LISPRO 100 UNITS/ML SUBCUT SCH ×3 (06:00→17:51)
[2023-03-01] MEDS: ACETYLCYSTEINE 200MG/ML 20% VIAL 4ML INH SCH ×2 (07:45→17:06)
[2023-03-01 08:16] LABS: BG BASE EXCESS 2.9 mmol/L (-2.0-2.0); BG CARBOXYHEMOGLOBIN 0.3 % (0.5-1.5); BG DEOXYHEMOGLOBIN 3.2 % (0.0-5.0); BG FRACTION INSPIRED OXYGEN 80; BG HCO3 ACT 26.9 mmol/L (22.0-26.0); BG METHEMOGLOBIN 0.2 % (0.0-1.5); BG OXYGEN SATURATION 96.8 % (92.0-98.5); BG OXYHEMOGLOBIN 96.3 % (94.0-97.0); BG PH 7.456 (7.350-7.450); BG PO2 95.1 mmHg (75.0-100.0); BG SAMPLE SITE LEFT RADIAL; BG TOTAL RESPIRATORY RATE 22 b/min; BG VENT MODE PRVC
[2023-03-01] MEDS: QUETIAPINE FUMARATE 50MG TABLET PO SCH ×2 (08:45→21:22)
[2023-03-01] MEDS: LACTULOSE 20G/30ML UDC PO SCH (08:45)
[2023-03-01] MEDS: METOPROLOL TARTRATE 50MG TABLET PO SCH ×2 (08:45→21:23)
[2023-03-01] MEDS: PANTOPRAZOLE SODIUM 40 MG/VIAL IV SCH (08:45)
[2023-03-01] MEDS: AMLODIPINE 10MG TABLET PO SCH (08:45)
[2023-03-01] MEDS: LEVETIRACETAM 500MG PREMIX 100 ML IV SCH ×2 (08:45→21:22)
[2023-03-02] VITALS (91 sets, daily range): BP systolic 100–164; BP diastolic 51–94
[2023-03-02] MEDS: BLOOD SUGAR DIAGNOSTIC STRIP TEST SCH ×4 (00:08→17:30)
[2023-03-02] MEDS: ACETYLCYSTEINE 200MG/ML 20% VIAL 4ML INH SCH ×3 (00:11→16:15)
[2023-03-02] MEDS: IPRATROPIUM BROMIDE (0.02%) 0.5MG/2.5ML NEB HHN SCH ×6 (00:11→20:46)
[2023-03-02] MEDS: CEFEPIME 1GM PREMIX 50 ML IV SCH ×2 (00:25→12:00)
[2023-03-02] MEDS: GUAIFENESIN 200MG/10ML SUGAR FREE UDC PO SCH ×4 (00:25→17:30)
[2023-03-02] MEDS: ACETAMINOPHEN 650MG/20.3ML UDC PO PRN ×2 (04:18→20:01)
[2023-03-02] MEDS: INSULIN LISPRO 100 UNITS/ML SUBCUT SCH ×4 (06:28→17:30)
[2023-03-02] MEDS: AMLODIPINE 10MG TABLET PO SCH (08:07)
[2023-03-02] MEDS: LEVETIRACETAM 500MG PREMIX 100 ML IV SCH ×2 (08:07→20:48)
[2023-03-02] MEDS: LACTULOSE 20G/30ML UDC PO SCH (08:07)
[2023-03-02] MEDS: QUETIAPINE FUMARATE 50MG TABLET PO SCH ×2 (08:07→20:48)
[2023-03-02] MEDS: PANTOPRAZOLE SODIUM 40 MG/VIAL IV SCH (08:07)
[2023-03-02] MEDS: METOPROLOL TARTRATE 50MG TABLET PO SCH ×2 (08:08→20:49)
[2023-03-02 08:31] LABS: BG BASE EXCESS 6.1 mmol/L (-2.0-2.0); BG CARBOXYHEMOGLOBIN 0.3 % (0.5-1.5); BG DEOXYHEMOGLOBIN 8.6 % (0.0-5.0); BG FRACTION INSPIRED OXYGEN 50; BG HCO3 ACT 30.5 mmol/L (22.0-26.0); BG METHEMOGLOBIN 0.3 % (0.0-1.5); BG OXYGEN SATURATION 91.3 % (92.0-98.5); BG OXYHEMOGLOBIN 90.8 % (94.0-97.0); BG PCO2 43.5 mmHg (35.0-45.0); BG PH 7.464 (7.350-7.450); BG SAMPLE SITE RIGHT RADIAL; BG TOTAL HEMOGLOBIN 10.3 g/dL (12.0-18.0); BG TOTAL RESPIRATORY RATE 24 b/min; BG VENT MODE PRVC
[2023-03-02 12:24] LABS: BASOPHILS % 0.4 % (0.0-2.0); HEMOGLOBIN. 9.5 g/dL (14.0-18.0); LYMPHOCYTES % 11.5 % (20.0-50.0); MEAN CORPUSCULAR HEMOGLOBIN 28.1 pg (28.0-32.0); MEAN CORPUSCULAR VOLUME 88.3 fL (80.0-94.0); MEAN PLATELET VOLUME 10.4 fl (7.4-10.4); NEUTROPHILS % 82.1 % (40.0-76.0); PLATELET 108 x1000/uL (130-400); RED CELL DISTRIBUTION WIDTH 15.8 % (11.6-14.6)
[2023-03-02 12:36] LABS: CHLORIDE 116 mEq/L (98-107)
[2023-03-02] MEDS ORDERED: NALOXONE HCL 0.4MG/ML VIAL IV PRN (14:30)
[2023-03-02] MEDS: MORPHINE SULFATE 2 MG/ML CPJ (NOT FOR IM USE) IV PRN (14:37)
[2023-03-02] MEDS: DEXTROSE 5% WATER 1,000 ML IV SCH (17:30)
[2023-03-02] MEDS: LORAZEPAM 2MG/ML CPJ IV PRN (20:19)
[2023-03-03] VITALS (60 sets, daily range): BP systolic 107–182; BP diastolic 47–141
[2023-03-03] MEDS: BLOOD SUGAR DIAGNOSTIC STRIP TEST SCH ×5 (00:25→23:37)
[2023-03-03] MEDS: INSULIN LISPRO 100 UNITS/ML SUBCUT SCH ×5 (00:25→23:37)
[2023-03-03] MEDS: GUAIFENESIN 200MG/10ML SUGAR FREE UDC PO SCH ×4 (00:32→18:41)
[2023-03-03] MEDS: CEFEPIME 1GM PREMIX 50 ML IV SCH (00:33)
[2023-03-03] MEDS: IPRATROPIUM BROMIDE (0.02%) 0.5MG/2.5ML NEB HHN SCH ×7 (01:01→23:49)
[2023-03-03] MEDS: ACETYLCYSTEINE 200MG/ML 20% VIAL 4ML INH SCH ×3 (01:02→23:49)
[2023-03-03] MEDS: LORAZEPAM 2MG/ML CPJ IV PRN (03:30)
[2023-03-03] MEDS: ACETAMINOPHEN 650MG/20.3ML UDC PO PRN ×2 (03:58→18:41)
[2023-03-03 07:56] LABS: BG BASE EXCESS 6.7 mmol/L (-2.0-2.0); BG CARBOXYHEMOGLOBIN 0.1 % (0.5-1.5); BG DEOXYHEMOGLOBIN 3.6 % (0.0-5.0); BG HCO3 ACT 31.2 mmol/L (22.0-26.0); BG METHEMOGLOBIN 0.2 % (0.0-1.5); BG OXYGEN SATURATION 96.4 % (92.0-98.5); BG OXYHEMOGLOBIN 96.1 % (94.0-97.0); BG PCO2 44.1 mmHg (35.0-45.0); BG PH 7.467 (7.350-7.450); BG PO2 83.8 mmHg (75.0-100.0); BG SAMPLE SITE RIGHT RADIAL; BG TOTAL HEMOGLOBIN 10.9 g/dL (12.0-18.0); BG VENT MODE VENT- PRVC
[2023-03-03] MEDS: PANTOPRAZOLE SODIUM 40 MG/VIAL IV SCH (09:20)
[2023-03-03] MEDS: LACTULOSE 20G/30ML UDC PO SCH (09:20)
[2023-03-03] MEDS: METOPROLOL TARTRATE 50MG TABLET PO SCH ×2 (09:20→21:36)
[2023-03-03] MEDS: LEVETIRACETAM 500MG PREMIX 100 ML IV SCH ×2 (09:20→21:36)
[2023-03-03] MEDS: QUETIAPINE FUMARATE 50MG TABLET PO SCH ×2 (09:21→21:36)
[2023-03-03] MEDS: AMLODIPINE 10MG TABLET PO SCH (09:21)
[2023-03-03] MEDS ORDERED: POTASSIUM CHLORIDE 20MEQ TABLET SR PO NR (09:30)
[2023-03-03] MEDS: DEXTROSE 5% WATER 1,000 ML IV SCH (12:04)
[2023-03-03] MEDS ORDERED: CEFEPIME 1GM PREMIX 50 ML IV SCH (13:00)
[2023-03-03] MEDS ORDERED: CEFEPIME 1,000 MG in DEXTROSE 5% WATER 50 ML IV SCH ×4 (13:00)
[2023-03-03] MEDS: CEFTRIAXONE 2 G in DEXTROSE 5% WATER 50 ML IV SCH (20:08)
[2023-03-04] VITALS (86 sets, daily range): BP systolic 86–195; BP diastolic 30–128
[2023-03-04] MEDS: GUAIFENESIN 200MG/10ML SUGAR FREE UDC PO SCH ×4 (00:42→18:53)
[2023-03-04] MEDS: ACETAMINOPHEN 650MG/20.3ML UDC PO PRN ×3 (00:43→20:01)
[2023-03-04] MEDS: MORPHINE SULFATE 2 MG/ML CPJ (NOT FOR IM USE) IV PRN ×3 (02:09→09:44)
[2023-03-04 02:30] LABS: CLARITY URINE CLEAR (CLEAR); COLOR URINE YELLOW (YELLOW); KETONES URINE NEGATIVE (NEGATIVE); LEUKOCYTE ESTERASE URINE NEGATIVE (NEGATIVE); NITRITE URINE NEGATIVE (NEGATIVE); OCCULT BLOOD URINE 2+ (NEGATIVE); PH URINE 6.5 (4.5-8.0); PROTEIN URINE 1+ (NEGATIVE); SPECIFIC GRAVITY URINE 1.016 (1.005-1.030)
[2023-03-04] MEDS: IPRATROPIUM BROMIDE (0.02%) 0.5MG/2.5ML NEB HHN SCH ×2 (02:51→08:20)
[2023-03-04 04:32] LABS: BASOPHILS % 0.5 % (0.0-2.0); EOSINOPHILS % 0.7 % (0.0-5.0); HEMATOCRIT. 28.2 % (42.0-52.0); HEMOGLOBIN. 9.1 g/dL (14.0-18.0); LYMPHOCYTES % 12.7 % (20.0-50.0); MEAN CORPUSCULAR HEMOGLOBIN 28.5 pg (28.0-32.0); MEAN CORPUSCULAR VOLUME 88.7 fL (80.0-94.0); MEAN PLATELET VOLUME 10.3 fl (7.4-10.4); MONOCYTES % 6.5 % (2.0-8.0); NEUTROPHILS % 79.6 % (40.0-76.0); PLATELET 133 x1000/uL (130-400); RED BLOOD CELL COUNT 3.18 mill/uL (4.7-6.1); RED CELL DISTRIBUTION WIDTH 16.6 % (11.6-14.6)
[2023-03-04 04:50] LABS: CHLORIDE 115 mEq/L (98-107)
[2023-03-04] MEDS: INSULIN LISPRO 100 UNITS/ML SUBCUT SCH ×3 (05:33→18:00)
[2023-03-04] MEDS: BLOOD SUGAR DIAGNOSTIC STRIP TEST SCH ×3 (05:33→18:53)
[2023-03-04] MEDS: LORAZEPAM 2MG/ML CPJ IV PRN ×4 (07:52→20:19)
[2023-03-04] MEDS: DEXTROSE 5% WATER 1,000 ML IV SCH (08:29)
[2023-03-04] MEDS: PANTOPRAZOLE SODIUM 40 MG/VIAL IV SCH (08:29)
[2023-03-04] MEDS ORDERED: LORAZEPAM 2MG/ML CPJ IV NR (08:30)
[2023-03-04] MEDS: QUETIAPINE FUMARATE 50MG TABLET PO SCH ×2 (08:31→20:02)
[2023-03-04] MEDS: METOPROLOL TARTRATE 50MG TABLET PO SCH (08:31)
[2023-03-04] MEDS: AMLODIPINE 10MG TABLET PO SCH (09:09)
[2023-03-04] MEDS: LACTULOSE 20G/30ML UDC PO SCH (09:09)
[2023-03-04] MEDS: LEVETIRACETAM 500MG PREMIX 100 ML IV SCH ×2 (09:09→20:01)
[2023-03-04] MEDS ORDERED: SODIUM CHLORIDE 0.9% 500 ML IV ONE (09:30)
[2023-03-04] MEDS ORDERED: HALOPERIDOL LACTATE 5MG/ML VIAL IM NR (09:30)
[2023-03-04] MEDS ORDERED: HALOPERIDOL LACTATE 5MG/ML VIAL IM PRN (11:00)
[2023-03-04] MEDS: FENTANYL 2500MCG/250ML PMX 250 ML IV PRN (11:45)
[2023-03-04] MEDS: METOPROLOL TARTRATE 100MG TABLET PO SCH ×2 (11:46→20:02)
[2023-03-04] MEDS: CEFTRIAXONE 2 G in DEXTROSE 5% WATER 50 ML IV SCH (18:54)
== END 2023-03-04 21:10 | disposition short-term general hospital (02) | DRG 870 ==
LOC: ER 15:22 → EDBEDREQ 15:51 → EDBEDREQSVC 15:51 → EDBEDREQTM 15:51 → MICUSO 18:55 → EDBEDREQ 18:59 → EDBEDREQTM 18:59 → ENRESERV 19:13 → MICUSO 02-26 16:07
PROVIDERS: ADMIT Internal Medicine; ATTEND Internal Medicine
PROC: 0BH17EZ Insertion of Endotracheal Airway into Trachea, Via Natural or Artificial Opening (ICD-10-PCS; principal; 2023-02-17)
PROC: 5A1955Z Respiratory Ventilation, Greater than 96 Consecutive Hours (ICD-10-PCS; 2023-02-17)
PROC: 02HV33Z Insertion of Infusion Device into Superior Vena Cava, Percutaneous Approach (ICD-10-PCS; 2023-02-18)
PROC: B548ZZA Ultrasonography of Superior Vena Cava, Guidance (ICD-10-PCS; 2023-02-18)
DX: A41.51 Sepsis due to Escherichia coli [E. coli] (principal); S06.6X0A Traumatic subarachnoid hemorrhage without loss of consciousness, initial encounter; J96.02 Acute respiratory failure with hypercapnia; G93.41 Metabolic encephalopathy; N17.0 Acute kidney failure with tubular necrosis; J69.0 Pneumonitis due to inhalation of food and vomit; J15.0 Pneumonia due to Klebsiella pneumoniae; J14 Pneumonia due to Hemophilus influenzae; D84.821 Immunodeficiency due to drugs; C18.9 Malignant neoplasm of colon, unspecified; E72.20 Disorder of urea cycle metabolism, unspecified; N39.0 Urinary tract infection, site not specified; K56.609 Unspecified intestinal obstruction, unspecified as to partial versus complete obstruction; K56.7 Ileus, unspecified; D64.9 Anemia, unspecified; E66.9 Obesity, unspecified; D69.6 Thrombocytopenia, unspecified; E11.9 Type 2 diabetes mellitus without complications; E87.6 Hypokalemia; Z68.38 Body mass index [BMI] 38.0-38.9, adult; Z86.73 Personal history of transient ischemic attack (TIA), and cerebral infarction without residual deficits; V47.5XXA Car driver injured in collision with fixed or stationary object in traffic accident, initial encounter; Y92.410 Unspecified street and highway as the place of occurrence of the external cause; X58.XXXA Exposure to other specified factors, initial encounter; Y93.89 Activity, other specified; Y92.89 Other specified places as the place of occurrence of the external cause; Y99.8 Other external cause status; Z79.4 Long term (current) use of insulin
CPT/HCPCS: 31500; 36415; 36573; 36600; 70496; 70498; 71045; 74018; 76770; 78580; 80048; 80053; 80202; 80305; 80307; 80320; 80329; 81003; 82140; 82375; 82550; 82805; 82962; 83036; 83735; 83880; 84100; 84145; 84443; 84478; 84484; 85025; 85379; 86850; 86900; 87070; 87077; 87186; 87426; 93005; 93306; 93970; 94002; 94003; 94640; 94667; 97161; 99291; A6261; C1725; C1769; C9113; J0330; J0360; J0692; J0696; J1630; J1815; J1953; J2060; J2250; J2270; J2405; J2543; J2704; J3010; J3370; J3480; J3490; J7050; J7060; J7070; J7121; J7608; Q9967; A4315; G0480